=== PATIENT | female | born 1975 | race African-American/Black ===

== ENCOUNTER 2018-11-06 11:23 | Emergency (ER) | payer MEDICAID ==
[~2018-11-06] VITALS: Ht 165.1 cm; Wt 63.0 kg
[~2018-11-06 11:23] MED LIST: ALBU6.7H INH
[2018-11-06] MEDS ORDERED: ACETAMINOPHEN WITH CODEINE 300/30MG TABLET PO ONE (12:00)
[2018-11-06] MEDS ORDERED: IBUPROFEN 600MG TABLET PO ONE (12:00)
[2018-11-06 12:12] VITALS: BP 134/66
[2018-11-06 12:28] LABS: CHLORIDE 105 mEq/L (98-107)
[2018-11-06 12:29] LABS: BASOPHILS % 0.5 % (0.0-2.0); HEMATOCRIT. 41.6 % (36.0-48.0); LYMPHOCYTES % 9.4 % (20.0-50.0); MEAN CORPUSCULAR HEMOGLOBIN 31.7 pg (28.0-32.0); MEAN CORPUSCULAR VOLUME 94.5 fL (81.0-99.0); MEAN PLATELET VOLUME 10.1 fl (7.4-10.4); MONOCYTES % 4.9 % (2.0-8.0); NEUTROPHILS % 85.2 % (40.0-76.0); PLATELET 250 x1000/uL (130-400); RED BLOOD CELL COUNT 4.41 mill/uL (4.2-5.4); RED CELL DISTRIBUTION WIDTH 13.3 % (11.6-14.6)
== END 2018-11-06 15:30 | disposition home or self-care (01) ==
LOC: ER 11:23
DX: S06.899A Other specified intracranial injury with loss of consciousness of unspecified duration, initial encounter (principal); M25.561 Pain in right knee; M25.562 Pain in left knee; H05.229 Edema of unspecified orbit; J45.909 Unspecified asthma, uncomplicated; F12.10 Cannabis abuse, uncomplicated; F17.200 Nicotine dependence, unspecified, uncomplicated; Z79.899 Other long term (current) drug therapy; Y08.89XA Assault by other specified means, initial encounter; Y93.89 Activity, other specified; Y92.89 Other specified places as the place of occurrence of the external cause; Y99.8 Other external cause status
CPT/HCPCS: 36415; 70450; 70486; 73562; 80053; 81025; 82962; 85025; 99284; Z7610

== ENCOUNTER 2019-02-25 23:27 | Emergency (ER) | payer SELFPAY ==
[~2019-02-25] VITALS: Ht 157.5 cm; Wt 66.8 kg
[2019-02-26] MEDS ORDERED: IBUPROFEN 600MG TABLET PO ONE (00:15)
[2019-02-26 00:39] VITALS: BP 115/71
== END 2019-02-26 00:43 | disposition home or self-care (01) ==
LOC: ER 23:27
DX: M25.562 Pain in left knee (principal); F12.10 Cannabis abuse, uncomplicated
CPT/HCPCS: 81025; 99282

== ENCOUNTER 2019-03-22 03:02 | Emergency (ER) | payer SELFPAY ==
[~2019-03-22] VITALS: Ht 157.5 cm; Wt 65.7 kg
[2019-03-22] MEDS ORDERED: ALBUTEROL (0.083%) 2.5MG/3ML NEB HHN STA (03:39)
[2019-03-22] MEDS ORDERED: IPRATROPIUM BROMIDE (0.02%) 0.5MG/2.5ML NEB HHN STA (03:39)
[2019-03-22] MEDS ORDERED: PREDNISONE 20MG TABLET PO STA (03:39)
[2019-03-22 06:34] VITALS: BP 118/64
== END 2019-03-22 06:25 | disposition home or self-care (01) ==
LOC: ER 03:02
DX: J45.901 Unspecified asthma with (acute) exacerbation (principal); I10 Essential (primary) hypertension
CPT/HCPCS: 94644; 99285; J7512; J7611; Z7610

== ENCOUNTER 2019-03-23 09:36 | Emergency (ER) | payer SELFPAY ==
[~2019-03-23] VITALS: Ht 157.5 cm; Wt 64.0 kg
[2019-03-23] MEDS ORDERED: PREDNISONE 20MG TABLET PO ONE (10:45)
[2019-03-23] MEDS ORDERED: IPRATROPIUM/ALBUTEROL 0.5-3(2.5)MG/3ML NEB HHN ONE ×2 (10:45)
[2019-03-23 12:15] VITALS: BP 170/63
== END 2019-03-23 12:18 | disposition home or self-care (01) ==
LOC: ER 09:36
DX: J45.901 Unspecified asthma with (acute) exacerbation (principal); J06.9 Acute upper respiratory infection, unspecified; I10 Essential (primary) hypertension; F12.10 Cannabis abuse, uncomplicated; F17.200 Nicotine dependence, unspecified, uncomplicated; Z98.890 Other specified postprocedural states
CPT/HCPCS: 71046; 87070; 87430; 94640; 99284; J7512; J7620; Z7610

== ENCOUNTER 2019-07-19 22:59 | Emergency (ER) | payer SELFPAY ==
[~2019-07-19] VITALS: Ht 165.1 cm; Wt 66.0 kg
[~2019-07-19 22:59] MED LIST changes: -ALBU6.7H INH; +ALBU6.7H11 INH
[2019-07-20] MEDS ORDERED: TETRACAINE 0.5% OPHTH DROPS 4ML RIGHTEYE ONE (00:30)
[2019-07-20] MEDS ORDERED: FLUORESCEIN SODIUM 1MG/STRIP RIGHTEYE ONE (00:30)
[2019-07-20 01:41] VITALS: BP 144/84
== END 2019-07-20 01:44 | disposition home or self-care (01) ==
LOC: ER 22:59
DX: S05.02XA Injury of conjunctiva and corneal abrasion without foreign body, left eye, initial encounter (principal); F12.10 Cannabis abuse, uncomplicated; X58.XXXA Exposure to other specified factors, initial encounter; Y93.89 Activity, other specified; Y92.89 Other specified places as the place of occurrence of the external cause; Y99.8 Other external cause status
CPT/HCPCS: 99283

== ENCOUNTER 2024-09-28 17:30 | Emergency (ER) | payer MEDICAID ==
[~2024-09-28] VITALS: Ht 167.6 cm; Wt 64.0 kg
[~2024-09-28 17:30] MED LIST changes: -ALBU6.7H11 INH; +ALBU6.7H15 INH
[2024-09-28 17:35] VITALS: TEMP 37.3; O2SAT 98
[2024-09-28] MEDS: KETOROLAC 30MG/ML VIAL IM ONE (18:35)
[2024-09-28] MEDS ORDERED: AMOX1TAB16 MT (20:26)
[2024-09-28] MEDS ORDERED: KETO10TA2 MT (20:26)
[2024-09-28] MEDS: TETANUS, DIPHTHERIA, PERTUSSIS VAC/PF 0.5ML (>10YR OLD) IM ONE (20:39)
[2024-09-28 20:43] VITALS: BP 172/96; PULSE 76; RESP 14; O2SAT 99
== END 2024-09-28 20:45 | disposition home or self-care (01) ==
LOC: ER 17:30
DX: S51.852A Open bite of left forearm, initial encounter (principal); S81.852A Open bite, left lower leg, initial encounter; I10 Essential (primary) hypertension; J45.909 Unspecified asthma, uncomplicated; W54.0XXA Bitten by dog, initial encounter; Y93.89 Activity, other specified; Y92.89 Other specified places as the place of occurrence of the external cause; Y99.8 Other external cause status
CPT/HCPCS: 90715; 12001; 90471; 96372; 99284; J1885; Z7610; A6449